=== PATIENT | male | born 1935 | race Caucasian/White ===

== ENCOUNTER 2023-03-27 13:49 | Outpatient (OUT) | payer MEDICARE, BC, SELFPAY ==
--- NOTE | 2023-03-27 16:16 | CONS_ITS ---
CONSULTATION DATE: ??03/27/2023 HISTORY:? Patient returns today complaining of pain in his right lower back area.? He reports he was lifting bags of sand which weighed 45 pounds, approximately 10 days, and reports since that time, he has had a mild to moderate increase in pain symptoms. ?Since that time though, he reports his pain symptoms have been gradually improving, but despite the improvement, he still reports having some pain rated between 1-3/10 pain, sharp in character.? Pain is increased with activities such as standing, walking and performing transitioning maneuvers.? He feels most comfortable in the semi-recumbent position.? He has been using tramadol infrequently, 50 mg daily p.r.n. and Tylenol 325 daily p.r.n.? EXAM:? His examination is notable for patient having no clinical radiculopathy or myelopathy involving his lower extremities.? He has nothing to suggest facet loading pain clinically or SI joint dysfunction clinically.? He had nothing to suggest compression fracture involving his thoracolumbar vertebral bodies as well.? He had a moderate amount of myofascial spasm of the lumbar paravertebral muscles on the right side, involving his erector spinae. IMPRESSION:? Our impression is patient appears to have chronic pain secondary to lumbar sprain/strain type injury.? He has history of lumbar spondylosis; however, he has no pain stemming from his facet joints on today?s visit.? RECOMMENDATIONS:? I recommend he apply heat or ice to the area and initiate aquatic therapy.? Since he is doing quite well, I recommend no further intervention for his residual pain symptoms.? We will see the patient back in the office in six months? time or sooner if needed. As part of providing excellent, safe, comprehensive care, the following was completed at our patient's visit: 1. A medication reconciliation and review to ensure accurate knowledge of current/active medications, including asking our patients to inform us about any [id number] medications or herbal remedies/nutritional supplements/alternative remedies. 2. A review to specifically ensure our patients have had annual screening for: elevated body mass index (BMI, see intake chart for exact total), tobacco use, screening for depression, and screening for unhealthy alcohol use.? When screening is concerning, patients are provided with education and the specific recommendation to discuss the concerning health issue and treatment options with their primary care provider. DAMARISD
== END 2023-03-27 13:50 | disposition home or self-care (01) ==
LOC: PM 13:49
PROVIDERS: Visit Provider Anesthesiology Pain Medicine
DX: G89.29 Other chronic pain (principal); S33.5XXA Sprain of ligaments of lumbar spine, initial encounter
CPT/HCPCS: G0463

== ENCOUNTER 2023-05-16 13:44 | Outpatient (OUT) | payer MEDICARE, BC, SELFPAY ==
--- NOTE | 2023-05-16 14:04 | PM.CN ---
Consult Note: HPI Data of Consult Patient: known to practice within the last 3 years Consult date: 05/16/23 Requesting Physician: Bernice Greenwood NP Primary Care Provider: Non-Staff Physician, MD Consult Narrative Narrative: Patient is here for f/u of chronic low back pain . Pain bilat lower lumbar area worse with walking and position change. Pain today is 2/10 lumbar area. He states he only takes tramadol sparingly. He does not want injections at this time. . No new sensorimotor sx or bowel or bladder issues. Medication regimen assists patient to better complete ADLs. Denies adverse medication SE. OARRS reviewed. KARMA -22 cc:: CC: Bernice Greenwood NP Review of Systems ROS Status of ROS 10 or more systems reviewed and unremarkable except as noted in history and below Musculoskeletal Reports: back pain Exam Constitutional Documenting provider has reviewed patient's vital signs: yes Common normals: no apparent distress, average body habitus, oriented x3, healthy appearing, alert and well nourished General appearance: cooperative, comfortable and well developed Orientation/consciousness: Yes awake, Yes oriented to person, Yes oriented to place and Yes oriented to time HENMT Common normals: normocephalic and moist oral mucous membranes Respiratory Common normals: normal respiratory effort, no retractions and no use of accessory muscles Effort & inspection: able to speak in complete sentences and symmetric chest movement Back & Pelvis Lumbar spine/lower back: normal to inspection, ROM limited, pain with ROM, paraspinal muscle tenderness and straight leg raise negative bilaterally Other: positive facet loading bilat lumbar muscle strength 4/5 bilat with intact sensation Extremity Common normals: normal to inspection, normal capillary refill and no pedal edema Assessment and Plan Assessment and Plan (1) Lumbar spondylosis: Plan refill tramadol UDS, may do mouth swab narcan
== END 2023-05-16 13:45 | disposition home or self-care (01) ==
PROVIDERS: Visit Provider Nurse Practitioner
DX: M47.816 Spondylosis without myelopathy or radiculopathy, lumbar region (principal)
CPT/HCPCS: G0463

== ENCOUNTER 2023-08-20 12:53 | Outpatient (OUT) | payer MEDICARE, BC, SELFPAY ==
--- NOTE | 2023-08-20 13:00 | P.CN_ITS ---
Consult Note: HPI Data of Consult Patient: known to practice within the last 3 years Requesting Physician: Bernice Greenwood NP Primary Care Provider: Non-Staff Physician, Consult Narrative Reason for consult: f/u Narrative: Adolfo Hilario a pleasant 88 year old male presents for evaluation and management of chronic back pain. Today rating pain 1/10 in low back. Patient has been doing very well since last appointment. He has filled 30tabs of tramadol since last visit and sparingly utilizes this medication, will take amarilis back and body when mild to moderate pain. Utilizes tramadol 50mg PRN for moderate to severe pain. KARMA 22% today cc:: CC: Bernice Greenwood NP Review of Systems ROS Status of ROS 10 or more systems reviewed and unremarkable except as noted in history and below Musculoskeletal Reports: back pain Meds Home Medications and Allergies Home Medications Medication Instructions Recorded Confirmed Type lisinopril 20 1 tab PO DAILY 05/16/23 05/16/23 History mg-hydrochlorothiazide 25 mg tablet multivitamin (Daily Multi-Vitamin 1 tab PO DAILY 05/16/23 05/16/23 History tablet) naloxone 4 mg/actuation nasal 4 mg intranasal Q3M PRN opioid 05/16/23 Rx spray (Narcan) overdose #2 ea simvastatin 20 mg tablet 20 mg PO DAILY 05/16/23 05/16/23 History tramadol 50 mg tablet 50 mg PO DAILY PRN pain #30 tabs 05/16/23 Rx vitamin B complex (Complex B-100 1 tab PO DAILY 05/16/23 05/16/23 History tablet,extended release) Allergies Allergy/AdvReac Type Severity Reaction Status Date / Time ibuprofen Allergy Verified 05/16/23 14:29 Exam Constitutional Documenting provider has reviewed patient's vital signs: yes Common normals: no apparent distress, oriented x3, healthy appearing, alert and well nourished General appearance: cooperative Orientation/consciousness: Yes awake, Yes oriented to person, Yes oriented to place and Yes oriented to time HENUT Common normals: normocephalic, hearing grossly normal bilaterally and moist oral mucous membranes Head and scalp: normocephalic Eye Common normals: PERRL Pupil: PERRL Neck & C-Spine Common normals: full ROM General: normal visual inspection Chest Common normals: inspection of chest normal Respiratory Common normals: normal respiratory effort, no retractions and no use of accessory muscles Effort & inspection: able to speak in complete sentences and symmetric chest movement Back & Pelvis Lumbar spine/lower back: normal to inspection, ROM limited, pain with ROM, paraspinal muscle tenderness and straight leg raise negative bilaterally Other: positive facet loading bilat lumbar muscle strength 4/5 bilat with intact sensation Extremity Common normals: normal to inspection, normal capillary refill and no pedal edema Neuro Common normals: oriented x3, CN's II-XII intact bilaterally, moves all extremities, no focal motor deficits, no sensory deficits noted and deep tendon reflexes 2+ bilaterally Sensorium/orientation: alert Motor exam: strength 5/5 throughout and no movement abnormalities noted Psych Common normals: mental status grossly normal, thought process normal, cooperative, affect normal, speech normal and activity/motor behavior normal Speech: normal speech Thought process: normal thought process Results Additional Findings Additional findings: I have checked an OARRS report on this patient today and there are no aberrancies noted in the prescribing history.?? A drug screen was completed and reviewed within the last year, and if there has not been a drug screen completed we ordered one today to monitor higher risk, state monitored pain medication use. As part of providing excellent, safe, comprehensive care, the following was completed at our patient's visit: 1. A medication reconciliation and review to ensure accurate knowledge of current/active medications, including asking our patients to inform us about any [id number] medications or herbal remedies/nutritional supplem ents/alternative remedies. 2. A review to specifically ensure our patients have had annual screening for: elevated body mass index (BMI), tobacco use, screening for depression, and screening for unhealthy alcohol use. When screening is concerning, patients are provided with education and the specific recommendation to discuss the concerning health issue and treatment options with their primary care provider. Assessment and Plan Assessment and Plan (1) Lumbar spondylosis: (2) Chronic prescription opiate use: Plan I have refilled the patient's opioid prescriptions at the above noted dose and schedule.? I feel these medications are improving the patient's quality of life and allow them to tolerate activities of daily living as well as participate in recreational activity.? The patient does not report intolerable side effects. The patient is NOT opioid naive and non-pharmacologic and non-opioid treatment has failed to significantly relieve the patient's pain and improve functionality. The patient has a diagnosis that is related to a somatic or visceral pain etiology. ? ?? I reviewed with the patient the potential risks and side effects with the use of? opioid medications including but not limited to respiratory depression,? sedation, and even . I verified the patient has access to naloxone should? these effects occur. I advised the patient to avoid the use of any other? sedation substances including alcohol, THC, and benzodiazepines while? taking opioid medications due to the risk of compounding side effects and? detrimental outcomes. I reviewed the [employer]MIN[employer]IVE [employer] JUSTICE, pain treatment agreement, urine? drug screen, and opioid start talking forms. The patient was advised to let? their family know they had Naloxone in case they would need to administer? the medication.? ?? A drug screen was completed within the last year, and no aberrancies were noted regarding their use of controlled substances. The patient understands they are subject to the terms and conditions of the pain contract that they have signed. ? ?? I have checked an OARRS report on this patient today and there are no aberrancies noted in the prescribing history.? -decrease tramadol to 14 tabs per month for moderate to severe pain with refills -continue PRN amarilis back and body -f/u 3 months for medication management
== END 2023-08-20 12:54 | disposition home or self-care (01) ==
PROVIDERS: Visit Provider Nurse Practitioner
DX: M47.816 Spondylosis without myelopathy or radiculopathy, lumbar region (principal); Z79.891 Long term (current) use of opiate analgesic
CPT/HCPCS: G0463

== ENCOUNTER 2023-12-01 11:58 | Outpatient (OUT) | payer MEDICARE, BC, SELFPAY ==
--- OUTSIDE RECORDS SUMMARY | 2023-12-01 12:08 | XMS_ITS | CCD ---
Author Name Unknown Address [id number] [place] [address] Organization [facility] Care Team Providers Care Pool Servicer Name Role Phone INKO LAMAR Consulting Unavailable CHRISTINE, DR MARCIO Grewal Primary Care Unavailable DENNY, DR CINTHYA El Attending Unavailable DENNY, DR CINTHYA El Admitting Unavailable DENNY, DR CINTHYA El Consulting Unavailable CHRISTINE, DR MARCIO Grewal Primary Care Unavailable DENNY, DR CINTHYA El Attending Unavailable DENNY, DR CINTHYA El Admitting Unavailable DENNY, DR CINTHYA El Consulting Unavailable NADERON, DR MARCIO Grewal Primary Care Unavailable DENNY, DR CINTHYA El Attending Unavailable DENNY, DR CINTHYA El Admitting Unavailable DENNY, DR CINTHYA El Consulting Unavailable CHRISTINE, DR MARCIO Grewal Primary Care Unavailable DENNY, DR CINTHYA El Attending Unavailable DENNY, DR CINTHYA El Admitting Unavailable LAMARNIKO MCLAUGHLIN Consulting Unavailable [facility] Primary Care Unava ilable DENNY, DR CINTHYA El Attending Unavailable DENNY, DR CINTHYA El Admitting Unavailable BRIANDA, NIKO Consulting Unavailable CHRISTINE, DR MARCIO Grewal Primary Care Unavailable DENNY, DR CINTHYA El Attending Unavailable DENNY, DR CINTHYA El Admitting Unavailable DENNY, DR CINTHYA El Consulting Unavailable NADERON, DR MARCIO Grewal Primary Care Unavailable DENNY, DR CINTHYA El Attending Unavailable DENNY, DR CINTHYA El Admitting Unavailable LAMAR, NIKO Consulting Unavailable DENNY, DR CINTHYA El Consulting Unavailable CHRISTINE, DR MARCIO Grewal Primary Care Unavailable DENNY, DR CINTHYA El Attending Unavailable DENNY, DR CINTHYA El Admitting Unavailable MOON STEWART Consulting Unavailable LAMAR, NIKO Consulting Unavailable [facility] Primary [facility] Unava ilable DENNY, DR CINTHYA El Attending Unavailable DENNY, DR CINTHYA El Admitting Unavailable DENNY, DR CINTHYA El Consulting Unavailable [facility] Primary Care Unava ilable DENNY, DR CINTHYA El Attending Unavailable BALDWIN, DR CINTHYA El Admitting Unavailable NIKO LAMAR Consulting Unavailable [facility] Primary [facility] Unava bashir BALDWIN, DR CINTHYA El Attending Unavailable DENNY, DR CINTHYA El Admitting Unavailable NIKO LAMAR Consulting Unavailable [facility] Care Unava illatonya BALDWIN, DR CINTHYA El Attending Unavailable DENNY, DR CINTHYA El Admitting Unavailable NIKO LAMAR Consulting Unavailable DR MARCIO KING Primary Care Unavailable DENNY, DR CINTHYA lE Attending Unavailable DENNY, DR CINTHYA El Admitting Unavailable Tamiko Ochoa Unavailable CARROL VILLEDA Attending Unavailable ALICE AYALA Referring Unavaila ALICE Linares Admitting Unavaila SARAH Alvarenga Primary Care Unavailable FRANDY HOSKINS Consulting Unavailable Sarah Belle DO Primary Care Provider Allergies Allergy Classification Reported Allergen(s) Allergy Type Date of Onset Reaction(s) Facility (2 sources) Ibuprofen; Translations: [IBUPROFEN] Drug Allergy 7 [facility] (1 source) traMADol Drug Allergy [facility] (2 sources) Ibuprofen Drug Allergy shortness of breath, GI Disturbance [facility] Medications Current Medications Medication Drug Class(es) Dates Sig (Normalized) Sig (Original) 8 hr acetaminophen 650 mg extended release oral tablet (1 source) take 1 tablet by mouth every eight hours as needed for pain, then take 1 tablet by mouth every eight hours as needed for pain acetaminophen (TYLENOL ARTHRITIS) 650 mg 8 hr tablet Take 650 mg by mouth every 8 (eight) hours as needed for pain. 0 Active amoxicillin 500 mg oral capsule (1 source) Penicillin-class Antibacterial Start: 07-16-2023 take 1 capsule by mouth every eight hours Amoxicillin 500 MG 1 capsule Orally three times a day for 10 day(s) Jul, Active ascorbic acid 500 mg extended release oral tablet (1 source) Vitamin C take 1 tablet by mouth in the morning ascorbic acid, vitamin C, (VITAMIN C) 500 MG tablet extended release CR tablet Take 1 tablet (500 mg total) by mouth in the morning. 0 Active cholecalciferol 0.125 mg oral tablet (1 source) Vitamin D take 1 tablet by mouth in the morning cholecalciferol, vitamin D3, 5,000 units tablet Take 1 tablet (5,000 Units total) by mouth in the morning. 0 Active gabapentin 100 mg oral capsule (1 source) Anti-epileptic Agent Start: 09-04-2023 take 1 capsule by mouth three times daily gabapentin (NEURONTIN) 100 mg capsule Indications: Cervical disc disease with myelopathy , Cervical stenosis of spinal canal Take 1 capsule (100 mg total) by mouth 3 (three) times a day. 90 capsule 2 09/04/2023 Active gluc flanagan/chondro flanagan A/vit C/Mn (GLUCOSAMINE 1500 COMPLEX ORAL) (1 source) gluc flanaagn/chondro flanagan A/vit C/Mn (GLUCOSAMINE 1500 COMPLEX ORAL) Take 1 tablet by mouth 2 (two) times a day. 0 Active Handicap placards as directed (1 source) Start: 04-12-2020 Handicap placards as directed as directed as directed as directed 6 monhts Apr, Active lidocaine 40 mg/ml topical cream (2 sources) Antiarrhythmic, Amide Local Anesthetic lidocaine (LMX) 4 % cream Apply 1 application topically daily. 0 Active Lidocaine 5 % as directed Externally Not-Taking methylPREDNISolone (1 source) Corticosteroid Start: 09-04-2023 methylPREDNISolone (MEDROL, PAVEL,) 4 mg tablet Indications: Cervical disc disease with myelopathy , Cervical stenosis of spinal canal follow package directions 21 tablet 0 09/04/2023 Active fljllaau-pnqi-oip-foli c acid (fuztbgrlocwm-cxuf-msw erals-folic acid) 3,500-18-0.4 unit-mg-mg tablet,chewable (1 source) thhfoxfn-alqh-hd n-fol ic acid (klhwpnsttbzr-kjxv-ik nerals-folic acid) 3,500-18-0.4 unit-mg-mg tablet,chewable Chew and swallow daily. 0 Active naproxen sodium 220 mg oral tablet (1 source) Nonsteroidal Anti-inflammatory Drug take 1 tablet by mouth every twelve hours at mealtime as needed Aleve 220 MG 1 tablet with food or milk as needed Orally every 12 hrs Active NON FORMULARY (1 source) Start: 11-02-2019 NON FORMULARY Indications: pain Apply topically 2 (two) times a day Indications: pain. CBD topical 0 11/02/2019 Active saw/vit E/sod margie/lyc/beta/pyg (PROSTATE HEALTH ORAL) (1 source) saw/vit E/sod margie/lyc/beta/pyg (PROSTATE HEALTH ORAL) Take by mouth. 0 Active tiZANidine 2 mg oral tablet (1 source) Central alpha-2 Adrenergic Agonist Start: 09-04-2023 take 1 tablet by mouth every eight hours as needed for muscle spasms tiZANidine (ZANAFLEX) 2 mg tablet Indications: Cervical disc disease with myelopathy , Cervical stenosis of spinal canal Take 1 tablet (2 mg total) by mouth every 8 (eight) hours as needed for muscle spasms. 30 tablet 1 09/04/2023 Active traMADol hydrochloride 50 mg oral tablet (1 source) Opioid Agonist take 1 tablet by mouth once daily as needed traMADoL (ULTRAM) 50 mg tablet 1 tablet as needed Orally Once a day 0 Active UNABLE TO FIND (1 source) UNABLE TO FIND M ed Name: HEMP CREAM 0 Active vitamin b12 0.5 mg oral tablet (2 sources) Vitamin B12 take 1 tablet by mouth in the morning cyanocobalamin (vitamin B-12) 500 MCG tablet Take 1 tablet (500 mcg total) by mouth in the morning. 0 Active Vitamin B 12 Not -Taking Vitamin C 500 MG (1 source) take 1 tablet by nela th once daily Vitamin C 500 MG 1 tablet Orally Once a day Active Completed/Discontinued Medications Medication Drug Class(es) Dates Sig (Normalized) Sig (Original) Cannabinoids 5 MG/GM (1 source) Cannabinoids 5 MG/GM as directed Externally Not-Taking fexofenadine hydrochloride 180 mg oral tablet (1 source) Histamine-1 Receptor Antagonist take 1 tablet by mouth every twenty-four hours Allergy 24-HR 180 MG 1 tablet as needed Orally Once a day Not-Taking hydroCHLOROthiazide 25 mg / lisinopril 20 mg oral tablet (2 sources) Thiazide Diuretic, Angiotensin Converting Enzyme Inhibitor End: 09-25-2023 take 1 tablet by mouth once in the morning lisinopril-hydroc hlorothiazide (PRINZIDE,ZESTORE TIC) 20-25 mg per tablet Take 1 tablet by mouth in the morning. 0 09/25/2023 Discontinued (Stop Taking at Discharge) take 1 tablet by nela th every twenty-four hours Lisinopril-hydroCHLOROthiazide 20-25 MG 1 tablet Orally Once a day Active simvastatin 20 mg oral tablet (2 sources) HMG-CoA Reductase Inhibitor End: 09-25-2023 take 1 tablet by mouth once daily simvastatin (ZOCOR) 20 mg tablet Take 1 tablet (20 mg total) by mouth nightly. 0 09/25/2023 Discontinued (Stop Taking at Discharge) Triamcinolone (2 sources) Corticosteroid Start: 04-12-2020 Kenalog -40 mg Apr, 40 mg Start: 05-14-2018 KENALOG - 10 m g May, 40 mg Problems Active Problems Problem Classification Problem Date Documented Date Episodic/Chronic Abdominal pain (1 source) Unspecified abdominal pain; Translations: [Unspecified abdominal pain] Onset: 09-21-2023 Episodic Acute myocardial infarction (2 sources) Non-ST elevation (NSTEMI) myocardial infarction; Translations: [Myocardial infarction] Onset: 09-21-2023 09-23-2023 Chronic Congestive heart failure; nonhypertensive (1 source) Heart failure, unspecified; Translations: [Heart failure, unspecified] Onset: 09-21-2023 Chronic Diabetes mellitus without complication (1 source) Hyperglycemia; Translations: [Hyperglycemia, unspecified] Onset: 09-22-2023 09-23-2023 Episodic Disorders of lipid metabolism (1 source) Hyperlipidemia; Translations: [Hyperlipidemia, unspecified] Onset: 07-30-2023 09-23-2023 Chronic Essential hypertension (1 source) Essential hypertension; Translations: [Essential (primary) hypertension] Onset: 07-30-2023 09-23-2023 Chronic Genitourinary symptoms and ill-defined conditions (1 source) Urge incontinence of urine; Translations: [Urge incontinence] Onset: 07-16-2023 07-16-2023 Chronic Genitourinary symptoms and ill-defined conditions (1 source) Lower urinary tract symptoms; Translations: [Unspecified symptoms and signs involving the genitourinary system] Onset: 07-14-2023 09-01-2023 Episodic Gout and other crystal arthropathies (1 source) Gout; Translations: [Gout, unspecified] Onset: 07-30-2023 07-30-2023 Chronic Headache; including migraine (1 source) Headache Onset: 09-21-2023 Episodic Headache; including migraine (1 source) Headache; including migraine Onset: 09-21-2023 Hyperplasia of prostate (1 source) Benign prostatic hyperplasia; Translations: [Benign prostatic hyperplasia with lower urinary tract symptoms] Onset: 07-30-2023 07-30-2023 Chronic Nausea and vomiting (1 source) Nausea Onset: 09-21-2023 Episodic Other connective tissue disease (1 source) Weakness of left hand; Translations: [Other symptoms and signs involving the musculoskeletal system] Onset: 07-30-2023 07-30-2023 Episodic Other diseases of kidney and ureters (1 source) Renal mass; Translations: [Other specified disorders of kidney and ureter] Onset: 06-01-2018 09-01-2023 Chronic Other nervous system disorders (1 source) Other chronic pain; Translations: [OTHER CHRONIC PAIN] Onset: 06-19-2022 Chronic Other nervous system disorders (1 source) Muscular dystrophy, unspecified; Translations: [MUSCULAR DYSTROPHY UNSPECIFIED] Onset: 08-18-2021 Chronic Other nervous system disorders (1 source) Chronic pain; Translations: [Other chronic pain] Chronic Other nervous system disorders (1 source) Neuropathy; Translations: [Polyneuropathy, unspecified] Onset: 07-30-2023 07-30-2023 Chronic Other nervous system disorders (1 source) Paresthesia of upper limb; Translations: [Anesthesia of skin] Onset: 07-30-2023 07-30-2023 Episodic Other nervous system disorders (1 source) H/O: Cedeno's palsy; Translations: [Personal history of other diseases of the nervous system and sense organs] Onset: 07-30-2023 07-30-2023 Episodic Otitis media and related conditions (1 source) Otitis media, unspecified, left ear Episodic Spondylosis; intervertebral disc disorders; other back problems (13 sources) Intervertebral disc disorders with myelopathy, lumbar region; Translations: [Other intervertebral disc degeneration, lumbar region] Onset: 09-16-2019 Chronic Spondylosis; intervertebral disc disorders; other back problems (11 sources) Intervertebral disc disorders with radiculopathy, lumbar region; Translations: [Radiculopathy, lumbar region] Onset: 01-29-2022 Episodic Unclassified (1 source) LOW BACK PAIN, UNSPECIFIED; Translations: [LOW BACK PAIN, UNSPECIFIED] Onset: 06-19-2022 Unclassified (3 sources) OTHER LOW BACK PAIN; Translations: [OTHER LOW BACK PAIN] Onset: 08-18-2021 Past or Other Problems Problem Classification Problem Date Documented Da te Episodic/Chronic Mood disorders (1 source) Mood disorders Onset: 07-30-2023 07-30-2023 Other connective tissue disease (4 sources) Muscle wasting and atrophy, not elsewhere classified, unspecified site; Translations: [MUSCLE WASTING ATROPHY NEC UNS SITE] Onset: 09-13-2021 Episodic Other connective tissue disease (1 source) Sarcopenia; Translations: [SARCOPENIA] Onset: 08-18-2021 Episodic Unclassified (1 source) OTHER LOW BACK PAIN; Translations: [OTHER LOW BACK PAIN] Onset: 08-14-2021 Unclassified (1 source) Onset: 07-30-2023 07-30-2023 Results Test Name Value Interpretation Reference Range Facil ity Glucose Glucometer (BldC) [M ass/Vol]on 09-22-2023 Glucose [Mass/Vol] 113 mg/dL High 65-99 [facility] Glucose [Mass/Vol] 119 mg/dL High 65-99 [facility] Heparin unfractionated Chrom ogenic method Qn (PPP)on 09-22-2023 ANTI XA UFH 0.14 IU/mL Low 0.30-0.70 [facility] Comment on above: Result Comment: Opti mal time for testing is 6 hrs post dosage This test is specific for monitoring patients on UFH, and is not recommended for use with other Anti-Xa medications. Performed By: #### 3 [id number] #### [facility] ([id number]) [address] [place] [address], [place] [address] TROPONIN Ion 09-22-2023 Troponin I.cardiac [Mass/Vol] 3.67 ng/mL Critically high 0.00-0.04 [facility] Comment on above: Result Comment: Concentrations greater than or equal to 0.05 ng/ml are considered elevated. Elevations of Troponin may be due to causes other than myocardial ischemia. Recommend serial Troponin testing be performed. Performed By: #### 1 [id number] #### [facility] ([id number]) [address] [facility], [place] [address] HGB A1C (GLYCO-HGB)on 2022 Glucose [Mass/Vol] 117 mg/dL Normal [facility] HbA1c (Bld) [Mass fraction] 5.7 % High 4.4-5.6 [facility] Comment on above: Result Comment: NOTE ADA Guidelines Result HgbA1c Normal : less than 5.7 % Prediabetes : 5.7 % to 6.4 % Diabetes : > 6.4 % Use with caution in patients with abnormal hemoglobin variants as the half-life of red blood cells and in vivo glycation rates are affected. Vital Signs Date Time Vital Sign Value Performing Clinician Facility 07-16-2023 16:40-0400 Body height 177.8 cm Tamiko Gabriela Other [employer] Other 07-16-2023 16:40-0400 Body mass index (BMI) [Ratio] 21.66 kg/m2 Tamiko Gabriela Other [facility] [employer] Other 07-16-2023 16:40-0400 Body temperature 96.8 [degF] Tamiko Gabriela Other [facility] Other 07-16-2023 16:40-0400 Body weight 68.49 kg Tamiko Gabriela Other [facility] [employer] Other 07-16-2023 16:40-0400 Diastolic blood pressure 62 mm[Hg] Tamiko Gabriela Other [facility] [employer] Other 07-16-2023 16:40-0400 Respiratory rate 16 /min Tamiko Ochoa Other [facility] Other 07-16-2023 16:40-0400 SaO2% (BldA) [Mass fraction] 95 % Tamiko Ochoa Other [facility] [employer] [employer] Other 07-16-2023 16:40-0400 Systolic blood pressure 132 mm[Hg] Tamiko Ochoa Other [facility] [employer] Other Encounters Encounter Date Encounter Type Care Provider Facility Start: 09-24-2023 Telephone encounter Antony Scanlon MD Work Phone: [facility] Comment on above: s/p CATH/PORTIA Start: 09-21-2023 End: 09-23-2023 Evaluation and management of inpatient CARROL VILLEDA [facility] Start: 07-16-2023 End: 07-16-2023 ambulatory Tamiko Ochoa Other [facility] [employer] Other Start: 07-16-2023 Office outpatient ne w 20 minutes Tamiko Ochoa [facility] Start: 10-10-2022 ambulatory NIKO LAMAR Facility:[facility] 1 Start: 07-11-2022 End: 07-12-2022 ambulatory NIKO LAMAR Facility:[facility] Start: 06-25-2022 End: 06-25-[address] CINTHYA BALDWIN Facility:[facility] Start: 06-13-2022 End: 06-14-2022 ambulatory NIKO LAMAR Facility:[facility] Start: 03-13-2022 End: 03-14-2022 ambulatory NIKO LAMAR Facility:[facility] Start: 01-24-2022 End: 01-25-2022 ambulatory NIKO LAMAR Facility:[facility] Start: 10-25-2021 End: 10-26-2021 ambulatory NIKO LAMAR Facility:[facility] Start: 10-02-2021 End: 10-02-[address] CINTHYA BALDWIN Facility:[facility] Start: 09-13-2021 End: 09-14-[address] CINTHYA BALDWIN Facility:[facility] Start: 08-22-2021 End: 08-23-[address] CINTHYA BALDWIN Facility:[facility] Start: 08-14-2021 End: 08-15-[address] CINTHYA BALDWIN Facility:[facility] Start: 07-26-2021 ambulatory NIKO LAMAR Facility:[facility] 1 Start: 07-17-2021 End: 07-17-[address] CINTHYA BALDWIN Facility:[facility] Procedures Date Procedure Procedure Detail Performing Clinician Start: 07-30-2023 Adult depression screening assessment Antony Scanlon MD Work Phone: Plan of Treatment Date Care Activity Detail Author Start: 09-25-2024 Adult BMI Screening Adult BMI Screen ing [facility] Start: 09-25-2024 Tobacco Screening Tobacco Screening [facility] Start: 07-30-2024 Depression Screening Depression Scre ening [facility] Start: 06-06-2023 COVID-19 Vaccine ( season) COVID-19 Vaccine ( season) [facility] Start: 06-06-2023 Influenza vaccination Influenza Vacc ine [facility] Start: 01-08-2000 Fall Risk Screening Fall Risk Screen ing [facility] Start: 1954 DTaP,Tdap and Td Vaccines (1 - Tdap) DTaP,Tdap and Td Vaccines (1 - Tdap) [facility] Start: 1935 Medicare Annual Well ness Visit Medicare Annual Wellness Visit [facility] Immunizations Immunization Date Immunization Notes Care Provider Fa cili 07-27-2020 influenza virus vaccine, unspecified formulation Antony Scanlon MD Work Phone: [facility] Payers Date Payer Category Payer Unknown GERARDO HULL [id number] 2016-Present [phone] [address] [place] [address] [id number] 2000 Medicare MEDICARE MEDICAR E PART A & B [id number] 2000-Present [phone] [address] [place] [address] [id number] 1959 Medicare [id number] 1959 Unknown [id number] 1935 Unknown [id number] 1935 Unknown [id number] 1935 Unknown [id number] 1935 Unknown [id number] [id number] 1935 Unknown [id number] [id number] 1935 Unknown [id number] [id number] 1935 Unknown [id number] [id number] 1935 Unknown [id number] [id number] 1935 Unknown [id number] 2.840.1.133125.3.579.2.5 1935 Unknown [id number] 2.840.1.549716.3.579.2.5 1935 Unknown [id number] 2.840.1.050150.3.579.2.5 1935 Unknown [id number] 2..[id number] 1935 Unknown [id number] [id number] 1935 Unknown [id number] 286 Social History Date Type Detail Facility Unknown if ever smoked [employer] Other Start: 11-16-2020 End: 09-25-2023 [facility] Start: 07-14-2023 Tobacco smoking stat us NHIS Ex-smoker [facility] End: 10-06-1974 History of tobacco use Current smoker [facility] End: 10-06-1974 History of tobacco use Cigarette Smoker [facility] Start: 07-14-2023 Tobacco use and exposure Smokeless tobacco non-user [facility] Start: 09-24-2023 Alcohol intake [facility]finding) [facility] Start: 11-16-2020 End: 09-24-2023 [facility] intake [facility] Adolescent depressio n screening assessment [facility] [employer] [facility] Start: 1935 Sex Assigned At Not on file [facility] Procedure Code Equipment Code Equipment Origin al Text Equipment Identifier Dates Mesh Brd Perfix Plug Med Repl [id number] [facility] [id number] - [id number] - [id number] Start: 05-26-2018 Comment on above: Description: direct repair Goals Date Patient Goal Desired Activity /State Personal health goal Comment on above: Formatting of this n ote might be different from the original. Evaluation of progress towards goal: plan home self care with dtr support Clinical Notes 03-15-2020 to 09-24-2023 Telephone Encounter - Imelda Tang - 09/24/2023 1:48 PM ESTTelephone Encounter - Kinza Celaya [facility] - 09/24/2023 1:48 PM ESTTelephone Encounter - Kinza Celaya [facility] - 09/24/2023 1:48 PM EST Note Date & Type Note Facility 09-24-2023 Miscellaneous Notes Formattin g of this note might be different from the original. From the 09/23/2023 procedure list: per FRS. Patient is currently admitted at [facility] s/p CATH/PORTIA. Follow-up in the office in 7-10 days post discharge. Pt still admitted APPLICATION CHEMIST slot sched on 10/07/23 w/RDG so that appt will need to be updated once discharged due to APPLICATION CHEMIST slot being EST pt now.ANIA Olivas Pt scheduled 10/07/2022 w/RDG. Pt still admitted will call pt after discharged to remind him of the appointment. Appt changed to EST since he was seen in [facility] by cardiology.ANIA Olivas Justice pt, spoke w/daughter, daughter aware of appointment. JLW [facility] this [facility]-2023 Telephone encount er Note From the 09/23/2023 procedure list: per FRS. Patient is currently admitted at [facility] s/p CATH/PORTIA. Follow-up in the office in 7-10 days post discharge. [employer] 09-24-2023 Telephone encount er Note Pt still admitted APPLICATION CHEMIST slot sched on 10/07/23 w/RDG so that appt will need to be updated once discharged due to APPLICATION CHEMIST slot being EST pt now.ANIA [facility]ivas [facility] 09-24-2023 Telephone encount er Note Pt scheduled 10/07/2022 w/RDG. Pt still admitted will call pt after discharged to remind him of the appointment. Appt changed to EST since he was seen in [facility] by cardiology.ANIA Olivas [facility] 09-24-2023 Telephone encount er Note Justice pt, spoke w/daughter, daughter aware of appointment. RUTH ANNW [facility]2023 Evaluation note Encounter Date Diagnosis Assessment Notes Jul, Left otitis media, unspecified otitis media type (ICD-10 - H66.92) Middle ear infection: adult home care material was printed Drink plenty fluids, get plenty of rest. Continue home medications as prescribed. Take the amoxicillin as prescribed until gone. Consider running a coolmist humidifier at your bedside. Take Tylenol as needed for aches pains or fevers. Follow-up with your family physician if no improvement in 3 to 4 days [employer] Other 10-06-2022 NoteCONSULTATION CONSULTATION DATE: 07/11/2022 This is a very pleasant 87-year-old gentleman returning to the clinic status post lumbar epidural steroid injection completed on 06/25/2022. The patient says that he is 80% relief which is ongoing. Overall, the patient states he is doing much better and reports 0 pain at rest. He has been out cutting wood which he is tolerating well. He has a prescription for Tramadol 50 mg q. day, p.r.n. and states he has not used that as often since the prescription. In regards to his back pain, he shared at his last appointment that his mattress was very uncomfortable. It was recommended to him to put a wood board underneath his mattress for sturdiness, he has done this and states he is more comfortable lying in bed. He denies any new pain pattern or injuries or falls. REVIEW OF SYSTEMS, PAST MEDICAL HISTORY, ALLERGIES AND IMAGES: Have been reviewed and noted in the chart. PHYSICAL EXAM: VITAL SIGNS: Blood pressure 157/83, heart rate is 72, temperature is 97. Height is 5'10 , weighs 71 kg. GENERAL APPEARANCE: Pleasant, appropriate, no acute distress. BACK: Range of motion is functional in lateral rotation and flexion/extension. Paravertebral muscles are non-spasmodic and Rajiv's point is nontender bilaterally. Negative Edie's and compression test. No spinoaxial pain upon compression of the posterior lumbar facets of L3, L4 and L5. MUSCULOSKELETAL: Muscle atrophy noted to diffusely to bilateral lower extremities. The patient does not use an assistive device to ambulate, he walks with an antalgic but steady gait. NEUROLOGICAL: No polyneuropathy, +1 blunted patellar and Achilles reflexes. The patient is cognitively intact DIAGNOSIS: Lumbar radiculitis, lumbar degenerative disk disease, chronic lower back pain. PLAN: We will refill is Tramadol 50 mg q. day p.r.n. The patient was encouraged to continue with his vitamins, daily exercises and heat application at night. The patient agrees with plan and will be followed up in three months' time unless otherwise indicated.[facility] [id number] NoteCONSULTATION CONSULTATION DATE: 06/13/2022 HISTORY OF PRESENT ILLNESS: This is a very pleasant and active 87-year-old male returning to the clinic for a three month appointment for his chronic lower back pain. He was last seen on 03/13/2022 and, at that time, his pain was very minimal rating at 1/10. Today, his pain is 7/10 as he has been doing increased amount of mulching and yard work. Physical activity including lifting, evening hours and ADLs worsen his pain. Lying down and sitting, as well as the use of heat decreases his pain. Current medications include tramadol 50 mg daily. The patient typically cuts the pill in half and takes a half in the morning and, if needed, will take the second half later in the day. He has had successful lumbar epidural steroid injections in the past, which greatly decreased his pain. He is inquiring about that today. He denies any new falls, injury or vasomotor changes. Patient's REVIEW OF SYSTEMS / PAST MEDICAL HISTORY / ALLERGIES and IMAGES have been reviewed and they are noted on the chart. PHYSICAL EXAM: Blood pressure 126/68, heart rate is 60. Temperature is 98.4. He is 5'10 and weighs 78.4 kg. GENERAL APPEARANCE: Pleasant, appropriate, no acute distress but uncomfortable in the chair. FOCUSED EXAM - BACK: Range of motion is functional in lateral rotation and flexion/extension. Paravertebral muscles are taut but non-spasmodic. Mild tenderness to Rajiv's point bilaterally with positive FABERs. Mild reproduction of spinal axial pain to direct compression along the lumbar facets L3, L4, L5 bilaterally. MUSCULOSKELETAL: Diffuse muscle atrophy noted. Patient walks with a stable gait, does not use an assistive device. Motor is 4/5 bilaterally. NEUROLOGICAL: Radicular sensory is intact. Negative polyneuropathy. +1 bilateral patellar and Achilles reflexes. DIAGNOSIS: Lumbar radiculitis, lumbar degenerative disc disease and chronic lower back pain. PLAN: We will work to repeat a lumbar epidural steroid injection seeing that he has greatly benefited in the past with this. He is in no need of a refill today for his tramadol, no change in dose or frequency. Patient to be cognizant of Boost supplements daily as well as a multivitamin. Patient agrees with the plan of care and will be followed up in the clinic post procedure.[facility] [id number] NoteCONSULTATION CONSULTATION DATE: 03/13/2022 This is a very pleasant 87-year-old gentleman who had asked to up his three-month appointment to today for increasing lower back pain. At the time that the patient called, he did not remember that he had Tramadol accessible to him on the PRN basis. Since the phone call, he has been taking half of a Tramadol pill, which would equal 25 mg. His pain was increased in his lower back and since taking the Tramadol he says his pain has been completely mitigated. Occasionally he has some tightness but he reports using heat or a heat rub. He reports no recent falls or new pain pattern. Activities that aggravate his pain are early childhood hours, stiffness and prolonged activity. Sitting and lying down decreases his pain. He takes no other medications from our clinic at this time. REVIEW OF SYSTEMS, PAST MEDICAL HISTORY, ALLERGIES AND IMAGES: Have been reviewed and noted in the chart. PHYSICAL EXAM: VITAL SIGNS: Blood pressure 146/85, heart rate is 61, temperature is 97.8. Weighs 73 kg. GENERAL APPEARANCE: No acute distress, pleasant, appropriate sitting in the chair. FOCUSED EXAM: BACK: Range of motion is functional in lateral rotation and flexion/extension. No reproduction of spinoaxial pain to direct compression along the lower lumbar facets. Rajiv's point is nontender with no referral pain. Edie's and compression test are negative. MUSCULOSKELETAL: Motor is intact 4 out of 5 bilaterally; diffuse muscle atrophy noted. The patient does walk with an antalgic gait without the use of assistive device NEUROLOGICAL: Negative polyneuropathy, +1 bilateral patellar and Achilles reflexes intact. DIAGNOSIS: Lumbar spondylosis, lumbar degenerative disk and chronic lower back pain. PLAN: Education was given again regarding the use of Tramadol and the patient states he understands its' proper use now. I did encourage him to use a heal rub in addition to a heat pack to his back while sitting in the recliner. Boost supplements were recommended as was a multivitamin. We will follow-up with the patient in three months' time, unless otherwise indicated. The patient agrees with the plan of care. [facility] Signed and Approved by: NIKO LAMAR . 03/21/2022 16:04:00[facility]04-21-2022 NoteCONSULTATION Consultation Date:01/24/2022 PAIN MANAGEMENT CONSULTATION HISTORY OF PRESENT ILLNESS: This is a very pleasant, 87-year-old gentleman who is here at the clinic today for a three month follow and medication maintenance. He takes tramadol 50 mg daily p.r.n. for his chronic lower back pain. He is not complaining of pain today but, with increased activity, he describes his lower back pain as achy and sore. He splits his tramadol in half and takes a half a pill on a p.r.n. basis only. He states this is very effective and can last him a couple days. He denies any numbness or tingling today, as well as any new pain patterns or vasomotor changes. Morning hours are the worst for him, as he wakes up stiff and hurting. He is concerned that he may need a new mattress. Patient's REVIEW OF SYSTEMS / PAST MEDICAL HISTORY / ALLERGIES and IMAGES have been reviewed and they are noted on the chart. PHYSICAL EXAM: VITALS: Blood pressure 133/77, heart rate is 94. Temperature is 97.3. He is 5'10 and weighs 74 kg. GENERAL APPEARANCE: Pleasant, no acute distress, appropriate affect.. FOCUSED EXAM - BACK: Range of motion is within functional limits in lateral rotation and flexion/extension. Bilateral paravertebral muscles are taut but non-spasmodic. Rajiv's point is non-tender. Facet compression negative for spinal axial pain. MUSCULOSKELETAL: Motor is intact, 4/5 bilaterally. Patient ambulates with a slow, steady gait. Does not use assistive device.. NEUROLOGICAL: Radicular sensory is intact. Negative polyneuropathy. IMPRESSION: Lumbar spondylosis, lumbar neuritis and lumbar degenerative disc disease. PLAN: Overall, the patient is doing quite well. We will continue to maintain his tramadol prescription at 50 mg daily. Patient was encouraged to continue using half of the pill as he sees fit, on a p.r.n. basis. Patient was encouraged to add Boost supplements to his daily intake as well as maintaining a multivitamin. We will see him in three months' time unless otherwise indicated. [facility] Signed and Approved by: NIKO LAMAR . 01/30/2022 16:14:00[facility]01-20-2022 NoteCONSULTATION PAIN MANAGEMENT CONSULTATION This is a pleasant and active 86-year-old gentleman returning to the clinic, status post lumbar epidural steroid injection on 10/02/2021 which afforded him 90% relief. The patient states today he has hardly any pain and feels very good. He does have a prescription for Tramadol 25 mg q. day p.r.n. and states he hasn't needed it in three days. His pain is 1 out of 10 today and his pain is aggravated by shoveling snow, lifting, housework, morning hours, and prolonged standing and walking. Sitting and lying down decreased pain. In relation to his Tramadol, he does use Icy Hot and Biofreeze on his back as needed. REVIEW OFSYMPTOMS, PAST MEDICAL HISTORY, ALLERGIES AND IMAGES: Have been reviewed and noted in the chart. PHYSICAL EXAM: VITAL SIGNS: Blood pressure 141/77, heart rate is 64, respirations are 16, temperature is 97.8. Height is 5'10 tall, weighs 74 kg. GENERAL APPEARANCE: No acute pain, smiling sitting in a chair. FOCUSED EXAM: BACK: Mild bilateral perivertebral tightness noted. Range of motion is within functional limits. MUSCULOSKELETAL: Intact, 4 out of 5 bilaterally. Generalized muscle atrophy noted to his lower extremities. NEUROLOGICAL: The patient is cognitively intact with patchy hypesthesia along the L5-S1 dermatome. DIAGNOSIS: Lumbar radiculitis, lumbar degenerative disk disease and lumbar spondylosis. PLAN: Overall the patient is doing great. We will continue to supportively treat him with Tramadol and heat rubs. The patient was encouraged to take Boost supplements daily to increase his protein intake. Will follow-up the patient in three-months' time at the clinic unless otherwise indicated. The patient agrees with the plan of care and all questions were answered. [facility] Signed and Approved by: NIKO LAMAR . 10/31/2021 16:46:00[facility]11-09-2021 NotePAIN MANAGEMENT Consultation Date: 08-14-21 CHIEF COMPLAINT: Low back pain, at times hip pain. HISTORY OF PRESENT ILLNESS: Today in the office I saw Adolfo Hilario. This is a very pleasant 86 year-old gentleman who is status post rhizotomy radiofrequency ablation of the dorsal rami in his lumbar spine which has afforded the patient 80-90% relief, to the point where the patient has been out at times on his tractor lawnmower and mowing the yard. The patient states he has generalized weakness. ADL: Sitting mitigates the pain as does lying down. Standing and walking aggravate the pain. The patient ambulates without any assistive devices. Cold weather aggravates the pain. MEDICATIONS: The patient takes Gene back and body and Lanacane ointment, Biofreeze to his low back. The patient has a vitamin regimen that he also takes at home. The patient is very pleases with the results, as are we, since the patient states he could not walk approximately a month ago. PAST MEDICAL HISTORY / PAST SURGICAL HISTORY and REVIEW OF SYSTEMS are noted on the chart along with the MEDICATIONS, ALLERGIES, and radiological images. PHYSICAL EXAM: GENERAL:This is a pleasant, cooperative gentleman who does not appear to be in any acute distress. VITALS:BP 161/75 with a heart rate of 60. At a height of 5'11 , the patient weighs 74 kg. BACK:Loss of lumbar lordosis is noted. Pelvic is rotated anteriorly. Extension, compression, and direct palpation does not aggravate overtly the patient's pain. The patient has some tenderness along the trochanteric region, however, not extreme. EXTREMITIES:Global atrophy of the muscle is noted in his lower extremities bilaterally. NEUROLOGICALLY:No radicular symptomatology is noted. PSYCHIATRICALLY:Affect is appropriate. IMPRESSION: 1. Significant lumbar degenerative disc disease. 2. Lumbar spondylosis. 3. Chronic pain. 4. Sarcopenia. 5. Muscle atrophy. PLAN: 1. We had suggested aquatic program to help build his muscle strength, however, the patient does not wish to. 2. The patient will continue to apply heat rub to his low back. 3. Tramadol 50 mg 1/2 to 1 tablet, 7 tablets have been given to the patient to try should he have pain. 4. We will schedule the patient for testosterone cypionate 150 mg IM three weeks apart x2 injections. 5. The patient will be scheduled for a lumbar epidural steroid injection for his lumbar neuritis in late September. The patient understands and would like to proceed. cc:Dr. King. [facility] Signed and Approved by: DR CINTHYA BALDWIN 08/21/2021 11:23:00[facility] [id number] History general Narrative - Reported* Type Description Date Medical History hyperlipidemia Medical History HTN Surgical History knee Surgical History vasectomy Surgical History hernia Surgical History back surgery 03/15/2020 Hospitalization History see above [employer] Other InstructionsNot on filedocumented in this encounter [facility] [employer] Summary Purpose Family History No Family History Records FoundNo Family History Records Found Advance Directives Latest Code Status on File Code Status Date Activated Date Inactivated Comments DNR Comfort Care (DNRCC) [place] 09/25/2023 3:33 PM 09/25 8:44 PM Code Status History Code Status Date Activated Date Inactivated Comments Full Code 09/23/2023 7:08 AM 09/25/2023 3:33 PM Full Code 09/21/2023 10:53 PM 09/23/2023 4:57 AM Additional Source Comments (unrecognized sect ion and content) No Status Records FoundNo Status Records Found INFORMATION SOURCE (unrecogn ized section and content) DATE CREATED AUTHOR 07/15/2022 [facility] DATE CREATED AUTHOR AUTHOR'S ORGANIZ ATION 09/26/2023 [facility] REASON FOR VISIT (unrecogniz ed section and content) Reason Onset Date Comments s/p CATH/PORTIA 09/24/2023 Care Teams (unrecognized sec tion and content) Pool Servicer Relationship Specialty Start Date End Date Sarah Belle DO [address] [place] [address] PCP - General Family Medicine 07/14/23 FOR RECORDS PERTAINING TO PATIENTS WHO ARE OR HAVE BEEN ENROLLED IN A CHEMICAL DEPENDENCY/SUBSTANCEABUSE PROGRAM, SOME INFORMATION MAY BE OMITTED. This clinical summary was aggregated from multiple sources. Caution should be exercised in using it in the provision of clinical care. This summary normalizes information from multiple sources, and as a consequence, information in this document may materially change the coding, format and clinical context of patient data. In addition, data may be omitted in some cases. CLINICAL DECISIONS SHOULD BE BASED ON THE PRIMARY CLINICAL RECORDS. [facility] [employer] [facility] [facility]. provides no warranty or guarantee of the accuracy or completeness of information in this document.
--- NOTE | 2023-12-01 13:24 | P.CN_ITS ---
Consult Note: HPI Data of Consult Patient: known to practice within the last 3 years Consult date: 12/01/23 Requesting Physician: Fito Mendez MD Primary Care Provider: Non-Staff Physician, Consult Narrative Reason for consult: Low back, bilateral hip and leg pain Narrative: 88yom who presents for assessment. Longstanding low back and bilateral lower extremity pain that has worsened in past several months. Imaging reviewed, which shows severe stenosis at L4-5 and L5-S1. Continues in provider directed home exercise course at his intermediate for >6 weeks, with minimal benefit. Uses tramadol, which helps minimally. Denies adverse med side effects. cc:: CC: Fito Mendez MD Review of Systems ROS Status of ROS 10 or more systems reviewed and unremark able except as noted in history and below Meds Home Medications and Allergies Home Medications Medication Instructions Recorded Confirmed Type lisinopril 20 1 tab PO DAILY 05/16/23 05/16/23 History mg-hydrochlorothiazide 25 mg tablet multivitamin (Daily Multi-Vitamin 1 tab PO DAILY 05/16/23 05/16/23 History tablet) naloxone 4 mg/actuation nasal 4 mg intranasal Q3M PRN opioid 05/16/23 Rx spray (Narcan) overdose #2 ea simvastatin 20 mg tablet 20 mg PO DAILY 05/16/23 05/16/23 History tramadol 50 mg tablet 50 mg PO DAILY PRN pain #30 tabs 05/16/23 Rx vitamin B complex (Complex B-100 1 tab PO DAILY 05/16/23 05/16/23 History tablet,extended release) tramadol 50 mg tablet 50 mg PO DAILY PRN pain #14 tabs 08/20/23 Rx Allergies Allergy/AdvReac Type Severity Reaction Status Date / Time ibuprofen Allergy Verified 05/16/23 14:29 Exam Narrative Exam Narrative: Psych-alert and oriented x 3. Attentive and appropriate, constitutionally normal, displays normal mood and affect per situation. There are no obvious deficits in memory, reasoning, or intellect.? Skin-no obvious rashes, bruising, erythema noted to the patient's area of pain.? Extremities- extremities are warm with minimal edema and palpable pulses. Lumbar-tenderness to palpation noted in the lumbar spine and paraspinal musculature. Pain is elicited with flexion, extension, and lateral rotation of the lumbar spine. Range of motion is diminished with these motions. Facet loading maneuvers are positive.? Strength-noted to be unremarkable with the exception of decreased strength rated at 4 out of 5 in bilateral quadriceps femoris, anterior tibialis. Sensory-no notable sensory deficits in the bilateral lower extremities to touch or pinprick in all dermatomal distributions with the exception to decreased sensation to the bilateral L4, 5 dermatomal distribution Sacroiliac - tenderness to palpation in bilateral PSIS. Positive Fred's sign bilaterally. Positive thigh thrust bilaterally. Coordination remains intact.? Gait remains non-antalgic. 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 Failed conservative measures, as noted. Imaging reviewed, as noted. Has had FLOYD in past with significant relief of >3 months, last done in 2021. Given symptoms and imaging, prudent to attempt bilateral L5-S1 tfesi under fluoroscopic guidance. May even benefit from bilateral SIJ injections. He is in agreement. Meds reviewed, no changes. Follow up after procedure.
== END 2023-12-01 11:59 | disposition home or self-care (01) ==
LOC: PM 11:59
PROVIDERS: Visit Provider Anesthesiology
DX: M48.062 Spinal stenosis, lumbar region with neurogenic claudication (principal); M53.3 Sacrococcygeal disorders, not elsewhere classified
CPT/HCPCS: G0463

== ENCOUNTER 2023-12-15 09:51 | Day surgery (SDC) | payer MEDICARE, BC, SELFPAY ==
[2023-12-15 10:07] VITALS: BP 139/74; PULSE 81; RESP 16; TEMP 36.2; O2SAT 94
--- OUTSIDE RECORDS SUMMARY | 2023-12-15 10:12 | XMS_ITS | CCD ---
Author Name Unknown Address [address] [place] [address] Organization [facility] Care Team Providers Care Meter Maintenance Person Name Role Phone LAMARNIKO MCLAUGHLIN Consulting Unavailable NADEREDevin, DR MARCIO Grewal Primary Care Unavailable DENNY, [...] Unavailable DENNY, DR CINTHYA El Consulting Unavailable NADEREDevin, DR MARCIO Grewal Primary Care Unavailable DENNY, DR CINTHYA El Attending Unavailable DENNY, DR CINTHYA El Admitting Unavailable LAMAR, NIKO Consulting Unavailable [facility] Primary Care Unava ilable DENNY, DR CINTHYA El Attending Unavailable DENNY, DR CINTHYA El Admitting Unavailable LAMAR, NIKO Consulting Unavailable NADERON, DR MARCIO Grewal Primary Care Unavailable DENNY, DR CINTHYA El Attending Unavailable DENNY, DR CINTHYA El Admitting Unavailable DENNY, DR CINTHYA El Consulting Unavailable NADEREDevin, DR MARCIO Grewal Primary Care Unavailable DENNY, DR CINTHYA El Attending Unavailable DENNY, DR CINTHYA El Admitting Unavailable LAMAR, NIKO Consulting Unavailable DENNY, DR CINTHYA El Consulting Unavailable NADEREDevin, DR MARCIO Grewal Primary Care Unavailable DENNY, DR CINTHYA El Attending Unavailable DENNY, DR CINTHYA El Admitting Unavailable MOON STEWART Consulting Unavailable LAMAR, NIKO Consulting Unavailable [facility] Primary [facility] Unava ilable DENNY, DR CINTHYA El Attending Unavailable DENNY, DR CINTHYA El Admitting Unavailable DENNY, DR CINTHYA El Consulting Unavailable [facility] Unava ilable DENNY, DR CINTHYA El Attending Unavailable DENNY, DR CINTHYA El Admitting Unavailable LAMAR, NIKO Consulting Unavailable [facility] Primary Care DR CINTHYA Machado Attending Unavailable DENNY, DR CINTHYA El Admitting Unavailable NIKO LAMAR Consulting Unavailable [facility] Primary Care Unava bashir BALDWIN, DR CINTHYA El Attending Unavailable DENNY, DR CINTHYA El Admitting Unavailable NIOK LAMAR Consulting Unavailable DR MARCIO KING Primary Care Unavailable DENNY, DR CINTHYA El Attending Unavailable DENNY, DR CINTHYA El Admitting Unavailable GabrielaTamiko Unavailable CARROL VILLEDA Attending Unavailable BOSAM ALICEBello COOLEYA RTiburcio Referring Unavaila ble BOMMAANETTE ALICE YASIRA RTiburcio Admitting Unavaila SARAH Alvarenga Primary Care Unavailable FRANDY HOSKINS Consulting Unavailable Sarah Belle DO Primary Care Provider Andrea SHAVER, Fito Knox Attending Unavailable Allergies Allergy Classification Reported Allergen(s) Allergy Type Date of Onset Reaction(s) Facility (2 sources) Ibuprofen; Translations: [IBUPROFEN] Drug Allergy 7 [facility] (1 source) traMADol Drug Allergy [facility] (2 sources) Ibuprofen Drug Allergy shortness of breath, GI Disturbance [facility] Medications Current Medications Medication Drug Class(es) [...] (GLUCOSAMINE 1500 COMPLEX ORAL) (1 source) gluc flanagan/chondro flanagan A/vit C/Mn (GLUCOSAMINE 1500 COMPLEX ORAL) Take 1 tablet by mouth 2 (two) times a day. 0 Active Handicap placards as directed (1 source) Start: 04-12-2020 Handicap placards as directed as directed as directed as directed 6 s Apr, Active lidocaine 40 mg/ml topical cream [...] package directions 21 tablet 0 09/04/2023 Active xugjprgp-vkzq-qia-foli c acid (hkvtmgbbxhpg-phxb-fyh erals-folic acid) 3,500-18-0.4 unit-mg-mg tablet,chewable (1 source) cdzmdzkn-pznw-hd n-fol ic acid (bewtrjvmnxwz-dydi-jg nerals-folic acid) 3,500-18-0.4 unit-mg-mg tablet,chewable Chew and [...] 09-22-2023 Glucose [Mass/Vol] 113 mg/dL High 65-99 [facility] Glucose [Mass/Vol] 119 mg/dL High 65-99 [facility] Heparin unfractionated Chrom ogenic method Qn (PPP)on 09-22-2023 ANTI XA UFH 0.14 IU/mL Low 0.30-0.70 [facility] Comment on above: Result Comment: Opti mal time for testing is 6 hrs post dosage This test is specific for monitoring patients on UFH, and is not recommended for use with other Anti-Xa medications. Performed By: #### 3 [id number] #### [facility] ([id number]) [address] [place] [address] [place] [address] TROPONIN Ion 09-22-2023 Troponin I.cardiac [Mass/Vol] 3.67 ng/mL Critically high 0.00-0.04 [facility] Comment on above: Result Comment: Concentrations greater than or equal to 0.05 ng/ml are considered elevated. Elevations of Troponin may be due to causes other than myocardial ischemia. Recommend serial Troponin testing be performed. Performed By: #### 1 [id number] #### [facility] ([id number]) [address] [place] [address] HGB A1C (GLYCO-HGB)on 2022 Glucose [Mass/Vol] 117 mg/dL Normal [facility] HbA1c (Bld) [Mass fraction] 5.7 % High 4.4-5.6 [facility] Comment on above: Result Comment: NOTE ADA [...] 07-16-2023 16:40-0400 Body height 177.8 cm Tamiko Tatemond Other [employer] Other 07-16-2023 16:40-0400 Body mass index (BMI) [Ratio] 21.66 kg/m2 Tamiko Tatemond Other [employer] Other 07-16-2023 16:40-0400 Body temperature 96.8 [degF] Tamiko Tatemond Other [employer] Other 07-16-2023 16:40-0400 Body weight 68.49 kg Tamiko Tatemond Other [employer] Other 07-16-2023 16:40-0400 Diastolic blood pressure 62 mm[Hg] Tamiko Tatemond Other [employer] Other 07-16-2023 16:40-0400 Respiratory rate 16 /min Tamiko Tatemond Other [employer] Other 07-16-2023 16:40-0400 SaO2% (BldA) [Mass fraction] 95 % Tamiko Gabriela Other [employer] Other 07-16-2023 16:40-0400 Systolic blood pressure 132 mm[Hg] Tamiko Tatemond Other [employer] Other Encounters Encounter Date Encounter Type Care Provider Facility Start: 12-01-2023 End: 12-02-2023 ambulatory Fito Mendez MD Facility:[facility] Start: 09-24-2023 Telephone encounter Antony Scanlon MD Work Phone: [facility] Comment on above: s/p CATH/PORTIA Start: 09-21-2023 End: 09-23-2023 Evaluation and management [facility] Start: 07-16-2023 End: 07-16-2023 ambulatory Tamiko Ochoa Other [employer] Other Start: 07-16-2023 Office outpatient ne w 20 minutes Tamiko Ochoa [facility] Start: 10-10-2022 ambulatory NIKO [...] Adult BMI Screening Adult BMI Screen ing [facility] Start: 09-25-2024 Tobacco Screening Tobacco Screening [facility] Start: 07-30-2024 Depression Screening Depression Scre ening [facility] Start: 06-06-2023 COVID-19 Vaccine ( season) COVID-19 Vaccine () [facility] Start: 06-06-2023 Influenza vaccination Influenza Vacc ine [facility] Start: 01-08-2000 Fall Risk Screening Fall Risk Screen ing [facility] Start: 1954 DTaP,Tdap and Td Vaccines (1 - Tdap) DTaP,Tdap and Td Vaccines (1 - Tdap) [facility] Start: 1935 Medicare Annual Well ness Visit Medicare Annual Wellness Visit [facility] Immunizations Immunization Date Immunization Notes Care Provider Fa cility 07-27-2020 influenza virus vaccine, unspecified formulation Antony Scanlon MD Work Phone: [facility] Payers Date Payer Category Payer Unknown [id number] 2000 Medicare [id number] 1959 Medicare [id number] 1959 Unknown [id number] 1935 Unknown [id number] 2.16.84 [id number] 1935 Unknown [id number] 2.16.84 0.1.625041.3.579.2.593 1935 Unknown [id number] 2.16.84 0.1.641969.3.579.2.593 1935 Unknown [id number] 2.16.84 0.1.814494.3.579.2.593 1935 Unknown [id number] 2.16.84 0.1.040825.3.579.2.593 1935 Unknown [id number] 2.16.84 0.1.377155.3.579.2.593 1935 Unknown [id number] 2.16.84 0.1.490675.3.579.2.593 1935 Unknown [id number] 2.16.84 0.1.318744.3.579.2.593 1935 Unknown [id number] 2.16.84 0.1.732560.3.579.2.593 1935 Unknown [id number] 2.16.84 0.1.060748.3.579.2.593 1935 Unknown [id number] 2.16.84 0.1.229191.3.579.2.593 1935 Unknown [id number] 2.16.84 0.1.302218.3.579.2.593 1935 Unknown [id number] 2.16.84 0.1.733676.3.579.2.593 1935 Unknown [id number] 2.16.840 .1.913336.3.579.2.1286 1935 Unknown [id number] 2.16. [id number] Social History Date Type Detail Facility Unknown if ever smoked [employer] Other Start: 11-16-2020 End: 09-25-2023 [facility] Start: 07-14-2023 Tobacco smoking stat us NHIS Ex-smoker [facility] End: 10-06-1974 History of tobacco use Current smoker [facility] End: 10-06-1974 History of tobacco use Cigarette Smoker [facility] Start: 07-14-2023 Tobacco use and exposure Smokeless tobacco non-user [facility] Start: 09-24-2023 Alcohol intake Ex-drinker (finding) [facility] Start: 11-16-2020 End: 09-24-2023 [facility] Adolescent depressio n screening assessment 0 [facility] Start: 1935 Sex Assigned At Not on file P [facility] Medical Equipment Procedure Code Equipment Code Equipment Origin al Text Equipment Identifier Dates Mesh Brd Perfix Plug Med Repl [id number] Rpl [id number] - [id number] - [id number] Start: 05-26-2018 Comment on above: Description: [...] 1:48 PM ESTTelephone Encounter - Kinza Celaya [facility] - 09/24/2023 1:48 PM ESTTelephone Encounter - Kinza Celaya, [facility] - 09/24/2023 1:48 PM EST Note Date & Type Note Facility 09-24-2023 Miscellaneous Notes Formattin g of this note might be different from the original. From the 09/23/2023 procedure list: per FRS. Patient is currently admitted at [facility] s/p CATH/PORTIA. Follow-up in the office in 7-10 days post discharge. 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 Pt still admitted will call pt after discharged to remind him of the appointment. Appt changed to EST since he was seen in [facility] by cardiology.ANIA Olivas Justice pt, spoke w/daughter, daughter aware of appointment. JLW documented in this encounter [facility] 09-24-2023 Telephone encount er Note From the 09/23/2023 procedure list: per FRS. Patient is currently admitted at [facility] s/p CATH/PORTIA. Follow-up in the office in 7-[address] 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 Pt still admitted will call pt after discharged to remind him of the appointment. Appt changed to EST since he was seen in [facility] by cardiology.ANIA Olivas [facility] 09-24-2023 Telephone encount er Note Justice pt, spoke w/daughter, daughter aware of appointment. JLW [facility] [employer] 07-16-2023 Evaluation note Encounter Date Diagnosis Assessment [...] no improvement in 3 to 4 days [employer] Other 10-06-2022 NoteCONSULTATION CONSULTATION DATE: 07/11/2022 This [...] in three months' time unless otherwise indicated.[id number] NoteCONSULTATION CONSULTATION DATE: 06/13/2022 HISTORY OF PRESENT [...] followed up in the clinic post procedure.[id number] NoteCONSULTATION CONSULTATION DATE: 03/13/2022 This is a [...] pattern. 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 Sitting and [...] patient agrees with the plan of care. [facility] Signed and Approved by: NIKO LAMAR . 03/21/2022 16:04:00[facility]04-21-2022 NoteCONSULTATION Consultation Date:01/24/2022 PAIN MANAGEMENT CONSULTATION HISTORY [...] in three months' time unless otherwise indicated. [facility] Signed and Approved by: NIKO LAMAR . 01/30/2022 16:14:00[facility]01-20-2022 NoteCONSULTATION PAIN MANAGEMENT CONSULTATION This is a [...] of care and all questions were answered. [facility] Signed and Approved by: NIKO LAMAR . 10/31/2021 16:46:00[facility]11-09-2021 NotePAIN MANAGEMENT Consultation Date: 08-14-21 CHIEF COMPLAINT: [...] and would like to proceed. cc:Dr. King. [facility] Signed and Approved by: DR CINTHYA BALDWIN 08/21/2021 11:23:00[facility]06-10-2020 History general Narrative - Reported* Type Description Date Medical History hyperlipidemia Medical History HTN Surgical History knee Surgical History vasectomy Surgical History hernia Surgical History back surgery 03/15/2020 Hospitalization History see above [employer] Other InstructionsNot on filedocumented in this encounter [facility] Summary Purpose Family History No Family History Records FoundNo Family History Records FoundNo Family History Records Found Advance Directives No Advanced Directives Records FoundLatest Code Status on File Code Status Date Activated Date Inactivated Comments DNR [facility] (DNRCC) [place] 09/25/2023 3:33 PM 09/25 8:44 PM Code Status History Code Status Date Activated Date Inactivated Comments Full Code 09/23/2023 7:08 AM 09/25/2023 3:33 PM Full Code 09/21/2023 10:53 PM 09/23/2023 4:57 AM Additional Source Comments (unrecognized sect ion and content) No Status Records FoundNo Status Records FoundNo Status Records Found INFORMATION SOURCE (unrecogn ized section and content) DATE CREATED AUTHOR 07/15/2022 [facility] DATE CREATED AUTHOR AUTHOR'S ORGANIZ ATION 09/26/2023 [facility] DATE CREATED AUTHOR AUTHOR'S ORGANIZ ATION 12/10/2023 [facility] REASON FOR VISIT (unrecogniz ed section and content) Reason Onset Date Comments s/p CATH/PORTIA 09/24/2023 Care Teams (unrecognized sec tion and content) Meter Maintenance Person Relationship Specialty Start Date End Date Sarah Belle DO [address] [place] [address] PCP - General Family Medicine 07/14/23 FOR [...] BE BASED ON THE PRIMARY CLINICAL RECORDS. [facility]. provides no warranty or guarantee of the accuracy or completeness of information in this document.
[2023-12-15 10:42] VITALS: BP 124/75; PULSE 48; RESP 18; O2SAT 98
[2023-12-15] MEDS: 0.9 % SODIUM CHLORIDE 10 ML INJ (10:45)
--- NOTE | 2023-12-15 10:45 | W.PM.PROCNOT ---
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 Informed consent was obtained and placed on the chart.? Patient was brought to the medical procedure unit and placed in the prone position where a timeout was completed verifying the correct patient, procedure site, position, and planned special equipment using sterile aseptic technique.? Under direct fluoroscopic visualization a 25-gauge Quincke tipped spinal needle was advanced at level left L5-S1 to the designated neural foramen where contrast dye was injected to show adequate spread.? There was no evidence of vascular or adverse uptake.? Epidural spread was appreciated.? The above-mentioned injectate was then placed in a 1.5 mL aliquot preceded by negative aspiration.? The needle was removed. The same procedure, at the same level, was completed on the opposite side. ? Patient was taken to the postprocedural recovery area and monitored for an appropriate length of time before found suitable for discharge in the accompaniment of a responsible adult. Anesthesia: Local Surgeon: Fito Mendez Pathology: none sent Condition: stable Disposition: no change
[2023-12-15] MEDS: TRIAMCINOLONE ACETONIDE 40 MG/ML VIAL 80 MG INJ (10:46)
[2023-12-15] MEDS: LIDOCAINE HCL 2% PF 100 MG/5 ML VIAL 2 ML INJ (10:46)
[2023-12-15] MEDS: IOHEXOL 240 MG/ML - 10 ML VIAL 12 MG INJ (10:46)
[2023-12-15] MEDS: BUPIVACAINE HCL 0.25% PF 25 MG/10 ML VIAL INJ (10:46)
[2023-12-15 10:47] VITALS: BP 126/70; PULSE 74; RESP 18; O2SAT 96
== END 2023-12-15 10:51 | disposition home or self-care (01) ==
PROVIDERS: Visit Provider Anesthesiology
DX: M48.062 Spinal stenosis, lumbar region with neurogenic claudication (principal)
CPT/HCPCS: 64483; Q9966